=== PATIENT | male | born 1995 | race Caucasian/White ===

== ENCOUNTER → 2021-05-05 08:59 | Outpatient (CLI) | payer OTHER, SELFPAY ==
--- NOTE | 2021-05-05 | DI.RAD.S_ITS ---
PROCEDURE: XR ABDOMEN 1V INDICATIONS: RENAL COLIC TECHNIQUE: One view of the abdomen acquired. COMPARISON: None. FINDINGS: Surgical changes and devices: None. Bowel: Bowel gas pattern is normal. Fecal stasis in the colon is seen. Soft tissues: No suspicious abdominal calcifications. Visualized solid organ contours appear normal in size. Bones: No suspicious bony lesions. IMPRESSION: No renal calcification is seen. Mild constipation. No gross free air. Dictated by: Arden Gonsalves M.D. on 05/05/2021 at 10:24 Approved by: Arden Gonsalves M.D. on 05/05/2021 at 10:25
== END ==
PROVIDERS: PCP Family Medicine; Referring Provider Urology; Visit Provider Urology
DX: N23 Unspecified renal colic (principal); K59.00 Constipation, unspecified
CPT/HCPCS: 74018